=== PATIENT | female | born 1955 | race Caucasian/White ===

== ENCOUNTER → 2017-01-31 11:39 | Emergency (ER) | payer BC, OTHER ==
[~2017-01-31 11:39] MED LIST: Aspirin TAB* 325 MG PO ONE; Iohexol 350* (CONTRAST) 500 ML MDV IV ONE; NS 0.9% 1000 ML* 1,000 ML IV ONE; Ondansetron INJ* 2 MG/ML VIAL IV ONE
[2017-01-31 12:37] LABS: Hematocrit 40 % (35-47); Hemoglobin 13.4 g/dl (12.0-16.0); Mean Corpuscular HGB Conc 33 g/dl (31-36); Mean Corpuscular Hemoglobin 30 pg (27-31); Mean Corpuscular Volume 90 fL (80-97); Mean Platelet Volume 8 um3 (7.4-10.4); Red Blood Count 4.47 10^6/ul (4.0-5.4); Red Cell Distribution Width 13 % (10.5-15); White Blood Count 6.5 10^3/ul (3.5-10.8)
[2017-01-31 12:51] LABS: BUN/Creatinine Ratio 17.9 (8-20); Calcium 9.2 mg/dL (8.6-10.3); EGFR African American 97.2 (>60); EGFR Non-African American 75.6 (>60); Globulin 2.7 g/dL (2-4); Potassium 3.7 mmol/L (3.5-5.0); Total Bilirubin 1.9 mg/dL (0.2-1.0); Total Protein 6.7 g/dL (6.4-8.9)
--- NOTE | 2017-01-31 14:01 | RAD ---
INDICATION: Headache vertigo and neck pain. COMPARISON: There are no prior studies available for comparison. TECHNIQUE: Contiguous axial sections of the brain were obtained from the skull base to the vertex without contrast. FINDINGS: The ventricles, cisterns and sulci are within normal limits. No significant focal abnormality or mass effect is seen. There is no evidence for hemorrhage. No significant focal osseous abnormality is seen. The visualized portion of the paranasal sinuses and mastoid air cells appear clear. IMPRESSION: NO EVIDENCE FOR GROSS ACUTE INFARCT, MASS EFFECT OR HEMORRHAGE.
--- NOTE | 2017-01-31 14:04 | RAD ---
INDICATION: Sinus pain. COMPARISON: There are no prior studies available for comparison. TECHNIQUE: Contiguous axial sections of the axial images of the sinuses were obtained and reconstructed in the coronal and sagittal planes. FINDINGS: There is mildly calcified thickening within the frontal and ethmoid sinuses. The maxillary and sphenoid sinuses appear clear. The ostiomeatal complexes appear patent on both sides. There is moderate deviation of the nasal septum toward the left side. The nasal passageways were otherwise clear. IMPRESSION: MILD MUCOSAL THICKENING WITHIN THE ETHMOID AND FRONTAL SINUSES. THE SINUSES WERE OTHERWISE CLEAR.
--- NOTE | 2017-01-31 14:11 | RAD ---
HISTORY: Headache, vertigo, neck pain COMPARISONS: Head CT dated January 31, 2017 TECHNIQUE: Multiple contiguous axial CT scans were obtained of the head and neck After the administration of nonionic intravenous contrast timed to the systemic arterial phase of contrast enhancement. Coronal and sagittal multiplanar reformations are submitted for review. Multiple 3-D maximum intensity projection reconstructions are also submitted for review. FINDINGS: CTA NECK: Evaluation is somewhat limited by suboptimal contrast opacification. AORTIC ARCH: There is a normal three-vessel branching pattern of the aortic arch. There is no ostial or proximal stenosis of the cephalic great vessels. RIGHT VERTEBRAL ARTERY: The right vertebral artery is patent along its course, without stenosis. LEFT VERTEBRAL ARTERY: There is loss of contrast enhancement of the distal V4 segment of the left vertebral artery, distal to the origin of the left posterior inferior cerebral artery, consistent with occlusion. DOMINANCE: The right vertebral artery is dominant. RIGHT COMMON CAROTID ARTERY: The right common carotid artery is patent. The right carotid bifurcation occurs at C4-C5 RIGHT INTERNAL CAROTID ARTERY: There is no right internal carotid artery stenosis by NASCET criteria. RIGHT EXTERNAL CAROTID ARTERY: The right external carotid artery is unremarkable. LEFT COMMON CAROTID ARTERY: The left common carotid artery is patent. The left carotid bifurcation occurs at C4-C5 LEFT INTERNAL CAROTID ARTERY: There is no left internal carotid artery stenosis by NASCET criteria. LEFT EXTERNAL CAROTID ARTERY: The left external carotid artery is unremarkable. VENOUS CIRCULATION: The venous system is unremarkable. SALIVARY GLANDS: The parotid glands, submandibular glands, sublingual glands are normal. NASAL CAVITY/NASOPHARYNX: The nasal cavity and nasopharynx are normal. ORAL CAVITY/OROPHARYNX: The oral cavity is obscured by streak artifact from dental amalgam. The visualized oral cavity and oropharynx are unremarkable. LARYNGEAL APPARATUS/HYPOPHARYNX: The laryngeal apparatus and hypopharynx are normal. UPPER AIRWAY/UPPER ESOPHAGUS: The visualized upper airway and esophagus are normal. LUNG APICES: The lung apices are clear. THYROID GLAND: The thyroid gland is normal. LYMPH NODES: There is no lymphadenopathy by size criteria. BONES AND SOFT TISSUES: Mild degenerative changes are noted. CTA HEAD: INTRACRANIAL CIRCULATION: As noted above, there is occlusion of the distal V4 segment of the left vertebral artery. Elsewhere, there is no aneurysm, vascular malformation, occlusion, or stenosis of the visualized intracranial circulation. The anterior communicating artery complex is clear. Bilateral posterior communicating arteries are identified. VENOUS CIRCULATION: The venous system is unremarkable. PERFUSION: There is no obvious parenchymal perfusion deficit. HEMORRHAGE/INFARCT: There is no hemorrhage or acute infarct. MASSES/SHIFT: There is no mass or shift. EXTRA-AXIAL SPACES: There are no extra-axial fluid collections. SULCI AND VENTRICLES: The sulci and ventricles are normal in size and position for the patient's stated age. CEREBRUM: There are no focal parenchymal abnormalities. BRAINSTEM: There are no focal parenchymal abnormalities. CEREBELLUM: There are no focal parenchymal abnormalities. PARANASAL SINUSES: The paranasal sinuses are clear. ORBITS: The orbits are unremarkable. BONES AND SOFT TISSUE: No bone or soft tissue abnormalities are noted. OTHER: There is no abnormal enhancement. IMPRESSION: 1. PROBABLE OCCLUSION OF THE DISTAL V4 SEGMENT OF THE LEFT VERTEBRAL ARTERY. THE LEFT POSTERIOR INFERIOR CEREBELLAR ARTERY IS PATENT. 2. NO INTERNAL CAROTID ARTERY STENOSIS BY NASCET CRITERIA. PRELIMINARY FINDINGS WERE DISCUSSED WITH DR. DUPONT IN THE EMERGENCY DEPARTMENT AT APPROXIMATELY 2:06 PM ON JANUARY 31, 2017.. CPT II Codes: 3100F
[2017-01-31 14:31] VITALS: BP 125/61
[2017-01-31 14:48] LABS: Urine Bacteria Absent (Absent); Urine Bilirubin Negative (Negative); Urine Glucose Negative (Negative); Urine Nitrite Negative (Negative)
--- NOTE | 2017-01-31 15:32 | ED ---
Misha Mckeon Alfonso, scribed for Sheree Hampton MD on 01/31/17 at 1204 . Complex/Multi-Sys Presentation - HPI Summary HPI Summary: This patient is a 61 year old F presenting to [facility] with a chief complaint of dizziness since 2 weeks ago. The patients PCP requested she present to the ED to r/o CVA. The patient rates the pain 7/10 in severity. Symptoms aggravated by standing. Symptoms alleviated by lying down. Patient reports a headache, N/V, ear ache, and left lateral neck pain. Patient denies sinus pressure, vision changes, slurred speech, and difficulty finding words. 3 weeks ago she was in a triathlon. She denies finding ticks on her recently. She denies any PMHx. - History Of Current Complaint Chief Complaint: EDHeadache Time Seen by Provider: 01/31/17 11:47 Hx Obtained From: Patient Onset/Duration: Sudden Onset, Lasting Weeks - 2, Still Present Timing: Constant Severity Currently: Moderate Severity Initially: Moderate Aggravating Factor(s): Standing Alleviating Factor(s): Lying down. Associated Signs And Symptoms: Positive: Other - Patient reports a headache, N/V , ear ache, and left lateral neck pain. Patient denies sinus pressure, vision changes, slurred speech, and difficulty finding words - Allergies/Home Medications Allergies/Adverse Reactions: Allergies Allergy/AdvReac Type Severity Reaction Status Date / Time No Known Allergies Allergy Verified 01/31/17 11:45 Home Medications: Home Medications Ondansetron TAB* [Zofran 4 MG Tab*] 4 - 8 mg PO Q8HR PRN MDD 12 mg 01/31/17 [ History Confirmed 01/31/17] Triamcinolone NASAL SPRAY* [Nasacort AQ Nasal Elbe*] 1 spray BOTH NARES DAILY 01/31/17 [History Confirmed 01/31/17] PMH/Surg Hx/FS Hx/Imm Hx Cardiovascular History: Denies: Hx Coronary Artery Disease Sensory History: Denies: Hx Deafness Opthamlomology History: Denies: Hx Legally Blind - Cancer History Hx Chemotherapy: No Hx Radiation Therapy: No Infectious Disease History: No Infectious Disease History: Reports: Traveled Outside the [place] in Last 30 Days - [place] - Family History Known Family History: Positive: Other - Lung cancer. CVA in grandfather. - Social History Lives: With Family Alcohol Use: None Hx Substance Use: No Substance Use Type: Reports: None Hx Tobacco Use: No Smoking Status (MU): Never Smoked Tobacco Review of Systems Positive: Other - Negative vision changes Positive: Ear Ache, Other - Negative sinus pressure. Positive: Vomiting, Nausea Positive: Other - Left lateral neck pain. Neurological: Other - Positive headache, dizziness; negative slurred speech, and difficulty finding words. All Other Systems Reviewed And Are Negative: Yes Physical Exam Triage Information Reviewed: Yes Vital Signs On Initial Exam: Initial Vitals Temp Pulse Resp BP Pulse Ox 97.8 F 60 16 146/82 99 01/31/17 11:42 01/31/17 11:42 01/31/17 11:42 01/31/17 11:42 01/31/17 11:42 Vital Signs Reviewed: Yes Appearance: Positive: Well-Appearing, No Pain Distress Skin: Positive: Skin Color Reflects Adequate Perfusion, Dry Eyes: Positive: EOMI, GENO ENT: Positive: Pharynx normal, TMs normal Neck: Positive: Supple, Nontender Respiratory/Lung Sounds: Positive: Clear to Auscultation, Breath Sounds Present. Negative: Rales, Rhonchi, Wheezes Cardiovascular: Positive: RRR, Other - No gallop.. Negative: Murmur, Rub Abdomen Description: Positive: Nontender, Soft, Other: - No rebound.. Negative : Distended, Guarding Bowel Sounds: Positive: Present Musculoskeletal: Positive: Strength/ROM Intact. Negative: Edema Left, Edema Right Neurological: Positive: Sensory/Motor Intact, Alert, Oriented to Person Place, Time, CN Intact II-III Psychiatric: Positive: Affect/Mood Appropriate Diagnostics - Vital Signs Vital Signs Temp Pulse Resp BP Pulse Ox 01/31/17 11:42 97.8 F 60 16 146/82 99 - Laboratory Lab Results: Lab Results 01/31/17 01/31/17 01/31/17 Range/Units 12:25 12:25 12:25 WBC 6.5 (3.5-10.8) 10^3/ul RBC 4.47 (4.0-5.4) 10^6/ul Hgb 13.4 (12.0-16.0) g/dl Hct 40 (35-47) % MCV 90 (80-97) fL MCH 30 (27-31) pg MCHC 33 (31-36) g/dl RDW 13 (10.5-15) % Plt Count 241 (150-450) 10^3/ul MPV 8 (7.4-10.4) um3 Neut % (Auto) 65.6 (38-83) % Lymph % (Auto) 23.3 L (25-47) % [place] % (Auto) 5.3 (1-9) % Eos % (Auto) 5.1 (0-6) % Baso % (Auto) 0.7 (0-2) % Absolute Neuts (auto) 4.3 (1.5-7.7) 10^3/ul Absolute Lymphs (auto) 1.5 (1.0-4.8) 10^3/ul Absolute Monos (auto) 0.3 (0-0.8) 10^3/ul Absolute Eos (auto) 0.3 (0-0.6) 10^3/ul Absolute Basos (auto) 0 (0-0.2) 10^3/ul Absolute Nucleated RBC 0 10^3/ul Nucleated RBC % 0 Sodium 137 (133-145) mmol/L Potassium 3.7 (3.5-5.0) mmol/L Chloride 108 (101-111) mmol/L Carbon Dioxide 27 (22-32) mmol/L Anion Gap 2 (2-11) mmol/L BUN 14 (6-24) mg/dL Creatinine 0.78 (0.51-0.95) mg/dL Est GFR ( Amer) 97.2 (>60) Est GFR (Non-Af Amer) 75.6 (>60) BUN/Creatinine Ratio 17.9 (8-20) Glucose 102 H (70-100) mg/dL Lactic Acid 0.8 (0.5-2.0) mmol/L Calcium 9.2 (8.6-10.3) mg/dL Total Bilirubin 1.90 H (0.2-1.0) mg/dL AST 21 (13-39) U/L ALT 20 (7-52) U/L Alkaline Phosphatase 52 (34-104) U/L Total Protein 6.7 (6.4-8.9) g/dL Albumin 4.0 (3.2-5.2) g/dL Globulin 2.7 (2-4) g/dL Albumin/Globulin Ratio 1.5 (1-3) Urine Color Urine Appearance Urine pH (5-9) Ur Specific Brethren (1.010-1.030) Urine Protein (Negative) Urine Ketones (Negative) Urine Blood (Negative) Urine Nitrate (Negative) Urine Bilirubin (Negative) Urine Urobilinogen (Negative) Ur Leukocyte Esterase (Negative) Urine WBC (Auto) (Absent) Urine RBC (Auto) (Absent) Ur Squamous Epith Cells (Absent) Urine Bacteria (Absent) Urine Glucose (Negative) 01/31/17 Range/Units 14:32 WBC (3.5-10.8) 10^3/ul RBC (4.0-5.4) 10^6/ul Hgb (12.0-16.0) g/dl Hct (35-47) % MCV (80-97) fL MCH (27-31) pg MCHC (31-36) g/dl RDW (10.5-15) % Plt Count (150-450) 10^3/ul MPV (7.4-10.4) um3 Neut % (Auto) (38-83) % Lymph % (Auto) (25-47) % [place] % (Auto) (1-9) % Eos % (Auto) (0-6) % Baso % (Auto) (0-2) % Absolute Neuts (auto) (1.5-7.7) 10^3/ul Absolute Lymphs (auto) (1.0-4.8) 10^3/ul Absolute Monos (auto) (0-0.8) 10^3/ul Absolute Eos (auto) (0-0.6) 10^3/ul Absolute Basos (auto) (0-0.2) 10^3/ul Absolute Nucleated RBC 10^3/ul Nucleated RBC % Sodium (133-145) mmol/L Potassium (3.5-5.0) mmol/L Chloride (101-111) mmol/L Carbon Dioxide (22-32) mmol/L Anion Gap (2-11) mmol/L BUN (6-24) mg/dL Creatinine (0.51-0.95) mg/dL Est GFR ( Amer) (>60) Est GFR (Non-Af Amer) (>60) BUN/Creatinine Ratio (8-20) Glucose (70-100) mg/dL Lactic Acid (0.5-2.0) mmol/L Calcium (8.6-10.3) mg/dL Total Bilirubin (0.2-1.0) mg/dL AST (13-39) U/L ALT (7-52) U/L Alkaline Phosphatase (34-104) U/L Total Protein (6.4-8.9) g/dL Albumin (3.2-5.2) g/dL Globulin (2-4) g/dL Albumin/Globulin Ratio (1-3) Urine Color Yellow Urine Appearance Clear Urine pH 6.0 (5-9) Ur Specific Brethren 1.012 (1.010-1.030) Urine Protein Negative (Negative) Urine Ketones Negative (Negative) Urine Blood Negative (Negative) Urine Nitrate Negative (Negative) Urine Bilirubin Negative (Negative) Urine Urobilinogen Negative (Negative) Ur Leukocyte Esterase 2+ H (Negative) Urine WBC (Auto) 2+(11-20/hpf) H (Absent) Urine RBC (Auto) Trace(0-2/hpf) (Absent) Ur Squamous Epith Cells Present H (Absent) Urine Bacteria Absent (Absent) Urine Glucose Negative (Negative) Result Diagrams: 01/31/17 12:25 01/31/17 12:25 Lab Statement: Any lab studies that have been ordered have been reviewed, and results considered in the medical decision making process. - CT Brain CT Interpretation Completed By: Radiologist - NO EVIDENCE FOR GROSS ACUTE INFARCT, MASS EFFECT OR HEMORRHAGE. ED physician has reviewed this radiology report and agrees. Sinuses CT Interpretation Completed By: Radiologist - MILD MUCOSAL THICKENING WITHIN THE ETHMOID AND FRONTAL SINUSES. THE SINUSES WERE OTHERWISE CLEAR. ED physician has reviewed this radiology report and agrees. CTA Head CT Interpretation Completed By: Radiologist - 1. PROBABLE OCCLUSION OF THE DISTAL V4 SEGMENT OF THE LEFT VERTEBRAL ARTERY. THE LEFT POSTERIOR INFERIOR CEREBELLAR ARTERY IS PATENT. 2. NO INTERNAL CAROTID ARTERY STENOSIS BY NASCET CRITERIA. PRELIMINARY FINDINGS WERE DISCUSSED WITH DR. HAMPTON IN THE EMERGENCY DEPARTMENT AT APPROXIMATELY 2:06 PM ON JANUARY 31, 2017. ED physician has reviewed this radiology report and agrees. 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/Release Non-Paretic Hand: Both Correctly Best Gaze (Only Horizontal Eye Movement): Normal Visual Field Testing: No Visual Loss Facial Paresis-Pt to Smile & Close Eyes or Grimace Symmetry: Normal/Symmetrical Motor Function - Right Arm: No Drift-Holds 10 Seconds Motor Function - Left Arm: No Drift-Holds 10 Seconds Motor Function - Right Leg: No Drift-Holds 10 Seconds Motor Function - Left Leg: No Drift-Holds 10 Seconds Limb Ataxia-Must be out of Proportion to Weakness Present: Absent Sensory (Use Pinprick to Test Arms/Legs/Trunk/Face): Normal Best Language (Describe Picture, Name Items): No Aphasia Dysarthria (Read Several Words): Normal Extinction and Inattention: No Abnormality Total Score: 0 Complex Multi-Symp Course/Dx Assessment/Plan: 61 yo female with 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 Dr. Lilly has consulted on the case - Diagnoses Provider Diagnoses: Vertebral artery dissection - Physician Notifications Discussed Care Of Patient With: Da Lilly Time Discussed With Above Provider: 14:09 Instructed by Provider To: Other - Consulted Dr. Lilly (hospitalist) who will see the patient in the ED. Dr. Lilly recommends an MRI and MRA. Consulted Dr. Shelia Perez ([facility]) who accepts the pt for transfer. Discharge - Discharge Plan Condition: Guarded Disposition: TRANS HIGHER LVL OF CARE FAC Discharge Disposition Comment: [facility]. Referrals: Devon Watson MD [Primary Care Provider] - The documentation as recorded by the Misha rae Alfonso accurately reflects the service I personally performed and the decisions made by me, Sheree Hampton MD.
--- NOTE | 2017-01-31 16:15 | CONS ---
CONSULTATION REPORT: DATE OF CONSULTATION: 01/31/17 LOCATION: She is currently in the emergency department. REASON FOR CONSULTATION: Headache, dizziness, nausea, and vomiting. HISTORY OF PRESENT ILLNESS: Ms. Butler is a very nice 61-year-old female who is healthy, has no significant medical problems and is very active. 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 She was in her usual state of health when 2 weeks ago today, she went to an exercise class. D uring that exercise class, they used hard plastic rolls up and down the back of their neck, putting pressure on pressure points. It was shortly thereafter that she developed acute onset of headache, severe nausea, vomiting, and dizziness. The dizziness is described as a spinning, but she states th at her whole head felt like it was spinning. She denies any true vertigo. She felt nauseated when she tried to move and vomited several times with movement. She also notes that she has a headache, which worsens when she lies down and also worsens when she Valsalva's, has a bowel movement or urina milan. Over the next 2 weeks, her symptoms have waxed and waned. At one point, she saw her primary c are physician who thought she might have some sinus issues, put her on Sudafed and her symptoms did improve some, but as soon as she came off the Sudafed, her symptoms returned. Today, she continues to have significant headache, significant dizziness, and dry heaves. She describes the headache in the back of her neck as an aching pain. She denies any vision changes, any speech changes, any swal lowing difficulties. She denies any facial droop, any double vision. She notes that she has some f ullness in her ears, but denies any focal numbness, tingling, or weakness. She states that the symp toms are worse when she sits up or tries to walk and that she almost immediately gets dizzy and star ts to develop a headache. She has taken aspirin several times over the last few days for her headac he and has tried NSAIDs as well without much relief. Today, she saw her primary care physician reinaldo lang who sent her to the ER based on the fact that her symptoms are not improving. Her brain CT showed no evidence for gross acute infarct, mass effect or hemorrhage. She had a head CTA, which I review ed and shows probable occlusion of the distal V4 segment of the left vertebral artery, the left post erior-inferior cerebellar artery is patent. No interval carotid artery stenosis by NASCET criteria. Sinus CT of the head showed mild mucosal thickening within the ethmoid and frontal sinuses. The s inuses were otherwise clear. PAST MEDICAL HISTORY: As above. FAMILY HISTORY: Her parents had lung cancer. SOCIAL HISTORY: No tobacco, alcohol, or drug use. She works in [employer]. She is very ac tive, competitively participates in triathlons. REVIEW OF SYSTEMS: Review of systems in 14-organ systems pertinent as above. Also, she has had some diarrhea, but denies any shortness of breath, chest pain. She denies any claudication or numbness i n her left arm or jaw. She denies any abdominal pain. She has had no recent sick contacts. No fev ers, chills, night sweats. She has traveled to [place] recently, but otherwise no recent travel. No recent illnesses that she is aware of. PHYSICAL EXAMINATION: Vital Signs: Heart rate of 41, pulse of 42, respirations of 14, O2 sat of 99 , blood pressure is 149/76 to 125/61. In general, she is a well- nourished, well-developed thin fem bryon in no acute distress, lying in her hospital bed. When she sits up, she develops some dizziness and a headache. She is normocephalic, atraumatic. Sclerae are anicteric. Mucous membranes are benny st. Oropharynx is clear. Nares are patent. Neck is supple. She has no meningismus. Chest: Clear to auscultation bilaterally. Cardiovascular: Bradycardic. Regular rate, irregular rhythm. Abdome n is nontender. Extremities: No clubbing, cyanosis, or edema. Skin is warm and dry. On neurologi c exam, she is awake, alert, oriented x3. Her speech is fluent. There is no dysarthria. Repetitio n and recall are both intact. Cranial nerves II through XII are all intact. There are no deficits noted. Motor exam is 5/5 throughout. No drift is apparent. Sensation is intact to light touch, pi nprick, vibration and proprioception in all 4 extremities. DTRs are 3+ and symmetric in the biceps and brachioradialis, 2+ at the triceps, 3+ at the patella, 2+ at the ankles, downgoing Babinski's. Finger-to- nose and rapid alternating movements are intact without dysdiadochokinesia or dysmetria. Dots-hm-xtzy is intact. Upon standing, she develops a headache and some dizziness, which is reliev ed with lying down. She has a negative Romberg and she is able to walk without any difficulty, alth ough at times she feel dizzy. LABORATORY DATA/DIAGNOSTIC STUDIES: Studies as above. ASSESSMENT AND PLAN: Ms. Butler is a 61-year-old female, very healthy, athletic, who 2 weeks ago was in an exercise class and used plastic rolls along the back of her neck and soon after developed severe nausea, vomiting, and headache, comes to the ER today with persistent symptoms over the last 2 weeks that have not resolved. Headache is positional in nature and worse with Valsalva, and CTA shows possible left vertebral occlusion. The differential also includes a dissection. Given the fac t that she is so symptomatic and there is concern for dissection, I do think transfer to a tertiary care center is appropriate and warranted. She may need a conventional angiogram to better assess th e vessels. I am going to hold on anticoagulation at this point. I suspect that when she stands up, she is getting somewhat orthostatic and that may be causing some decreased flow through the posteri or circulation causing some symptoms. She will be transferred urgently to the nearest tertiary care center. [id number]/[facility] #: [id number]
== END | disposition short-term general hospital (02) ==
LOC: ED 11:39
DX: I77.74 Dissection of vertebral artery (principal); R42 Dizziness and giddiness; R51 Headache; R11.2 Nausea with vomiting, unspecified; H92.09 Otalgia, unspecified ear
CPT/HCPCS: 36415; 70450; 70486; 70496; 70498; 80053; 81003; 81015; 83605; 85025; 87086; 93005; 96374; 99284; J2405

== ENCOUNTER 2018-10-14 19:15 | Emergency (ER) | payer BC ==
[2018-10-14] MEDS ORDERED: Morphine INJ* 10 MG/ML 1 ML CARPUJECT IV ONE ×2 (19:34→20:47)
[2018-10-14] MEDS ORDERED: Ondansetron INJ* 2 MG/ML VIAL IV ONE (19:34)
[2018-10-14] MEDS ORDERED: NS 0.9% 1000 ML** 1,000 ML IV ONE (19:34)
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
[2018-10-14] MEDS ORDERED: Tetan/Diph/Pertus SYR(Tdap)* 0.5 ML SYR(BOOSTRIX) use SYR IM ONE (19:38)
[2018-10-14] MEDS ORDERED: Morphine 10 MG/ML VIAL (1 ml) ONE ×2 (19:49→20:55)
[2018-10-14 21:17] LABS: Hematocrit 39 % (35-47); Mean Corpuscular HGB Conc 34 g/dL (31-36); Mean Corpuscular Hemoglobin 30 pg (27-31); Mean Corpuscular Volume 90 fL (80-97); Red Blood Count 4.31 10^6 /uL (3.70-4.87); Red Cell Distribution Width 13 % (10.5-15); White Blood Count 12.8 10^3/uL (3.5-10.8)
[2018-10-14 21:18] LABS: ABS Basophils 0.1 10^3/ul (0-0.2); ABS Eosinophils 0.1 10^3/ul (0-0.6); ABS Lymphocytes 1.3 10^3/ul (1.0-4.8); ABS Monocytes 0.5 10^3/ul (0-0.8); ABS Neutrophils 10.7 10^3/ul (1.5-7.7); ABS Nucleated RBC 0.1 10^3/ul; Eosinophil % 0.7 %; Lymphocyte % 10.4 %; Mean Platelet Volume 7.5 fL (7.4-10.4); Platelet Count 245 10^3/uL (150-450)
[2018-10-14 21:21] LABS: INR 1.15 (0.82-1.09)
[2018-10-14 21:22] LABS: Activated Partial Thrombo Time 27.3 seconds (26.0-36.3); Albumin 3.9 g/dL (3.2-5.2); Calcium 8.5 mg/dL (8.6-10.3); Total Bilirubin 0.9 mg/dL (0.2-1.0)
[2018-10-14 21:28] LABS: Albumin/Globulin Ratio 1.6 (1-3); BUN/Creatinine Ratio 22.4 (8-20); EGFR African American 93.6 (>60); EGFR Non-African American 77.4 (>60); Globulin 2.5 g/dL (2-4); Total Protein 6.4 g/dL (6.4-8.9)
[2018-10-14] MEDS ORDERED: Lidocaine 2% EPI 1:200000 MPF*10-20 ML VIAL ONE (21:34)
[2018-10-14] MEDS ORDERED: Bacitracin OINTMENT* 0.5% 0.5 oz TUBE ONE (22:12)
[2018-10-14] MEDS ORDERED: Metoclopramide IV* 5 MG/ML 2 ML VIAL IV SLOW PU ONE (22:14)
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
[2018-10-14 23:46] VITALS: BP 125/81
== END 2018-10-14 23:45 | disposition home or self-care (01) ==
LOC: ED 19:15
DX: S62.307A Unspecified fracture of fifth metacarpal bone, left hand, initial encounter for closed fracture (principal); S52.021A Displaced fracture of olecranon process without intraarticular extension of right ulna, initial encounter for closed fracture; V18.2XXA Unspecified pedal cyclist injured in noncollision transport accident in nontraffic accident, initial encounter; Y93.55 Activity, bike riding; Y92.410 Unspecified street and highway as the place of occurrence of the external cause
CPT/HCPCS: 36415; 70450; 72125; 72128; 80053; 82550; 85025; 85610; 85730; 90471; 90715; 96361; 96374; 96375; 96376; 99283; A9270-GY; J2270; J2405; J2765